=== PATIENT | female | born 2000 | race Caucasian/White ===

== ENCOUNTER 2022-11-19 11:53 | Outpatient (RCR) | payer SELFPAY ==
[2022-11-19] MEDS: Normal Saline Flush 10 ML SYR IVP (12:11)
[2022-11-19 12:19] LABS: Abs Immature Grans 0.36 10^3/uL (0.0-0.06); Absolute Eosinophil Count 0.03 10^3/uL (0.0-0.7); Absolute Neutrophil Count 15.29 10^3/uL (1.2-6.7); Basophils % 0.3; Eosinophils % 0.2; HCT 40.1 % (36.0-46.0); HGB 12.3 g/dL (11.2-15.7); Immature Grans % 2.1; Lymphocytes % 4.6; MCH 26.1 pg (27.0-33.0); MCHC 30.7 % (32.0-36.0); MCV 85 fL (80-95); MPV 9.8 fL (8.0-11.0); Monocytes % 5.3; Neutrophils % 87.5; Platelet Count 295 10^3/uL (130-400); RBC 4.72 10^6/uL (3.93-5.22); RDW 18.6 % (11.7-14.6); RDW-SD 57.1 fL; WBC 17.47 10^3/uL (4.4-10.8)
[2022-11-19 12:21] LABS: Absolute Basophil Count 0.05 10^3/uL (0.0-0.2); Absolute Monocyte Count 0.93 10^3/uL (0.1-0.8)
[2022-11-19 12:23] LABS: ESR 37 mm/hr (0-20)
[2022-11-19 12:35] LABS: ALT 28 U/L (14-59); AST 13 U/L (15-37); Albumin 3.2 g/dL (3.4-5.0); Alkaline Phosphatase 66 U/L (46-116); Anion Gap 4.2 mmol/L (3-11); BUN 20 mg/dL (7-18); Bilirubin, Total 0.2 mg/dL (0.2-1.0); CO2 29.8 mmol/L (21.0-32.0); CREATININE 0.9 mg/dL (0.55-1.02); Calcium 8.9 mg/dL (8.5-10.1); Chloride 104 mmol/L (98-107); Estimated GFR 92.12 (mL/min/1.73m2); Glucose 97 mg/dL (74-106); Potassium 3.9 mmol/L (3.5-5.1); Sodium 138 mmol/L (136-145); Total Protein 7.5 g/dL (6.4-8.2)
== END 2022-11-25 23:59 | disposition home or self-care (01) ==
LOC: INF 11:53
PROVIDERS: PCP Nurse Practitioner Family; Visit Provider Internal Medicine Hematology & Oncology
DX: C81.18 Nodular sclerosis Hodgkin lymphoma, lymph nodes of multiple sites (principal); Z45.2 Encounter for adjustment and management of vascular access device
CPT/HCPCS: 36591; 80053; 85652; 85025

== ENCOUNTER 2022-12-17 01:33 | Outpatient (RCR) | payer SELFPAY ==
[2022-12-03] MEDS: Normal Saline Flush 10 ML SYR IVP (08:10)
[2022-12-03 08:19] LABS: Abs Immature Grans 1.34 10^3/uL (0.0-0.06); HCT 39.6 % (36.0-46.0); HGB 12.5 g/dL (11.2-15.7); MCH 26.5 pg (27.0-33.0); MCHC 31.6 % (32.0-36.0); MCV 84 fL (80-95); MPV 9.8 fL (8.0-11.0); Platelet Count 200 10^3/uL (130-400); RBC 4.71 10^6/uL (3.93-5.22); RDW 19.4 % (11.7-14.6); RDW-SD 57.5 fL; WBC 13.81 10^3/uL (4.4-10.8)
[2022-12-03 08:30] LABS: ESR 19 mm/hr (0-20)
[2022-12-03 08:36] LABS: ALT 62 U/L (14-59); AST 24 U/L (15-37); Albumin 3.4 g/dL (3.4-5.0); Alkaline Phosphatase 91 U/L (46-116); Anion Gap 4.9 mmol/L (3-11); BUN 12 mg/dL (7-18); Bilirubin, Total 0.2 mg/dL (0.2-1.0); CO2 31.1 mmol/L (21.0-32.0); CREATININE 0.7 mg/dL (0.55-1.02); Calcium 8.9 mg/dL (8.5-10.1); Chloride 107 mmol/L (98-107); Estimated GFR 124.55 (mL/min/1.73m2); Glucose 86 mg/dL (74-106); Potassium 3.8 mmol/L (3.5-5.1); Sodium 143 mmol/L (136-145); Total Protein 6.9 g/dL (6.4-8.2)
[2022-12-03 08:44] LABS: Absolute Lymphocyte Count 4.97 10^3/uL (1.2-3.4); Absolute Neutrophil Count 7.04 10^3/uL (1.2-6.7); Atypical Lymphocytes % 3
[2022-12-03 08:45] LABS: Absolute Basophil Count 0.14 10^3/uL (0.0-0.2); Absolute Eosinophil Count 0.41 10^3/uL (0.0-0.7); Absolute Monocyte Count 1.24 10^3/uL (0.1-0.8); Diff Comment Manual Differential; RBC Morphology Normal
[2022-12-10 08:00] LABS: Abs Immature Grans 0.14 10^3/uL (0.0-0.06); HCT 39.6 % (36.0-46.0); HGB 12.5 g/dL (11.2-15.7); MCH 26.4 pg (27.0-33.0); MCHC 31.6 % (32.0-36.0); MCV 84 fL (80-95); Platelet Count 231 10^3/uL (130-400); RBC 4.73 10^6/uL (3.93-5.22); RDW-SD 54.6 fL; WBC 6.59 10^3/uL (4.4-10.8)
[2022-12-10] MEDS: Normal Saline Flush 10 ML SYR IVP (08:11)
[2022-12-10] MEDS: Heparin 500 UNITS/5 ML SYRINGE IV (08:11)
[2022-12-10 08:16] LABS: Absolute Lymphocyte Count 2.37 10^3/uL (1.2-3.4); Absolute Monocyte Count 0.53 10^3/uL (0.1-0.8); Absolute Neutrophil Count 3.36 10^3/uL (1.2-6.7); Atypical Lymphocytes % 3; Bands % 3
[2022-12-10 08:17] LABS: Absolute Basophil Count 0.13 10^3/uL (0.0-0.2); Diff Comment Manual Differential; RBC Morphology Normal
[2022-12-10 08:20] LABS: ALT 63 U/L (14-59); AST 21 U/L (15-37); Albumin 3.5 g/dL (3.4-5.0); Alkaline Phosphatase 123 U/L (46-116); Anion Gap 9.8 mmol/L (3-11); BUN 6 mg/dL (7-18); Bilirubin, Total 0.2 mg/dL (0.2-1.0); CO2 27.2 mmol/L (21.0-32.0); CREATININE 0.6 mg/dL (0.55-1.02); Calcium 8.9 mg/dL (8.5-10.1); Chloride 102 mmol/L (98-107); Estimated GFR 129.27 (mL/min/1.73m2); Glucose 116 mg/dL (74-106); Potassium 3.6 mmol/L (3.5-5.1); Sodium 139 mmol/L (136-145); Total Protein 6.8 g/dL (6.4-8.2)
[2022-12-17] MEDS: Normal Saline Flush 10 ML SYR IVP (12:59)
[2022-12-17 13:04] LABS: Abs Immature Grans 1.25 10^3/uL (0.0-0.06); HCT 39.7 % (36.0-46.0); HGB 12.7 g/dL (11.2-15.7); MCH 26.8 pg (27.0-33.0); MCV 84 fL (80-95); MPV 9.7 fL (8.0-11.0); Platelet Count 312 10^3/uL (130-400); RBC 4.74 10^6/uL (3.93-5.22); RDW 18.9 % (11.7-14.6); WBC 13.72 10^3/uL (4.4-10.8)
[2022-12-17 13:07] LABS: ESR 24 mm/hr (0-20)
[2022-12-17 13:15] LABS: ALT 116 U/L (14-59); AST 32 U/L (15-37); Albumin 3.7 g/dL (3.4-5.0); Alkaline Phosphatase 97 U/L (46-116); Anion Gap 8.9 mmol/L (3-11); BUN 14 mg/dL (7-18); Bilirubin, Total 0.1 mg/dL (0.2-1.0); CO2 28.1 mmol/L (21.0-32.0); CREATININE 0.6 mg/dL (0.55-1.02); Calcium 9.2 mg/dL (8.5-10.1); Chloride 104 mmol/L (98-107); Estimated GFR 129.27 (mL/min/1.73m2); Glucose 107 mg/dL (74-106); Potassium 3.7 mmol/L (3.5-5.1); Sodium 141 mmol/L (136-145); Total Protein 7.2 g/dL (6.4-8.2)
[2022-12-17 13:21] LABS: Absolute Lymphocyte Count 5.08 10^3/uL (1.2-3.4); Absolute Monocyte Count 0.55 10^3/uL (0.1-0.8); Absolute Neutrophil Count 7.96 10^3/uL (1.2-6.7); Atypical Lymphocytes % 2; Bands % 1; Diff Comment Manual Differential; Metamyelocytes % 1; RBC Morphology Normal
== END 2022-12-23 23:59 | disposition home or self-care (01) ==
LOC: INF 01:33
PROVIDERS: PCP Nurse Practitioner Family; Visit Provider Internal Medicine Hematology & Oncology
DX: Z45.2 Encounter for adjustment and management of vascular access device (principal); C81.18 Nodular sclerosis Hodgkin lymphoma, lymph nodes of multiple sites
CPT/HCPCS: 36591; 80053; 85652; 87040; 85025

== ENCOUNTER 2023-01-14 02:29 | Outpatient (RCR) | payer SELFPAY ==
[2022-12-31] MEDS: Normal Saline Flush 10 ML SYR IVP (11:30)
[2022-12-31 11:43] LABS: Abs Immature Grans 0.01 10^3/uL (0.0-0.06); Absolute Basophil Count 0.15 10^3/uL (0.0-0.2); Absolute Eosinophil Count 0.12 10^3/uL (0.0-0.7); Absolute Monocyte Count 0.91 10^3/uL (0.1-0.8); Absolute Neutrophil Count 2.94 10^3/uL (1.2-6.7); Basophils % 2.3; Eosinophils % 1.8; HCT 37.8 % (36.0-46.0); Immature Grans % 0.2; Lymphocytes % 36.8; MCH 26.7 pg (27.0-33.0); MCHC 31.7 % (32.0-36.0); MCV 84 fL (80-95); MPV 9.8 fL (8.0-11.0); Monocytes % 13.9; Platelet Count 341 10^3/uL (130-400); RDW 18.6 % (11.7-14.6); RDW-SD 55.8 fL; WBC 6.53 10^3/uL (4.4-10.8)
[2022-12-31 11:45] LABS: ESR 23 mm/hr (0-20)
[2022-12-31 12:10] LABS: ALT 66 U/L (14-59); AST 26 U/L (15-37); Albumin 3.7 g/dL (3.4-5.0); Alkaline Phosphatase 77 U/L (46-116); Anion Gap 6.2 mmol/L (3-11); BUN 9 mg/dL (7-18); Bilirubin, Total 0.2 mg/dL (0.2-1.0); CO2 29.8 mmol/L (21.0-32.0); CREATININE 0.5 mg/dL (0.55-1.02); Calcium 9.2 mg/dL (8.5-10.1); Chloride 106 mmol/L (98-107); Estimated GFR 135.07 (mL/min/1.73m2); Glucose 94 mg/dL (74-106); Sodium 142 mmol/L (136-145); Total Protein 7.2 g/dL (6.4-8.2)
[2023-01-14 10:45] LABS: Abs Immature Grans 0.01 10^3/uL (0.0-0.06); Absolute Basophil Count 0.06 10^3/uL (0.0-0.2); Absolute Eosinophil Count 0.08 10^3/uL (0.0-0.7); Absolute Lymphocyte Count 1.96 10^3/uL (1.2-3.4); Absolute Monocyte Count 0.65 10^3/uL (0.1-0.8); Absolute Neutrophil Count 2.26 10^3/uL (1.2-6.7); Basophils % 1.2; Eosinophils % 1.6; HCT 37.8 % (36.0-46.0); HGB 12.3 g/dL (11.2-15.7); Immature Grans % 0.2; MCH 27.1 pg (27.0-33.0); MCHC 32.5 % (32.0-36.0); MCV 83 fL (80-95); MPV 9.6 fL (8.0-11.0); Monocytes % 12.9; Neutrophils % 45.1; Platelet Count 340 10^3/uL (130-400); RBC 4.54 10^6/uL (3.93-5.22); RDW 18.7 % (11.7-14.6); RDW-SD 56.1 fL; WBC 5.02 10^3/uL (4.4-10.8)
[2023-01-14 10:51] LABS: ESR 25 mm/hr (0-20)
[2023-01-14] MEDS: Normal Saline Flush 10 ML SYR IVP (10:58)
[2023-01-14 11:11] LABS: ALT 50 U/L (14-59); AST 20 U/L (15-37); Albumin 3.7 g/dL (3.4-5.0); Alkaline Phosphatase 67 U/L (46-116); BUN 13 mg/dL (7-18); Bilirubin, Total 0.2 mg/dL (0.2-1.0); CREATININE 0.6 mg/dL (0.55-1.02); Calcium 9.2 mg/dL (8.5-10.1); Chloride 106 mmol/L (98-107); Estimated GFR 129.27 (mL/min/1.73m2); Glucose 92 mg/dL (74-106); Sodium 140 mmol/L (136-145); Total Protein 7.2 g/dL (6.4-8.2)
== END 2023-01-23 23:59 | disposition home or self-care (01) ==
LOC: INF 02:29
PROVIDERS: PCP Nurse Practitioner Family; Visit Provider Internal Medicine Hematology & Oncology
DX: Z45.2 Encounter for adjustment and management of vascular access device (principal); C81.18 Nodular sclerosis Hodgkin lymphoma, lymph nodes of multiple sites
CPT/HCPCS: 36591; 80053; 85652; 85025

== ENCOUNTER 2023-02-11 02:29 | Outpatient (RCR) | payer SELFPAY ==
[2023-01-28 08:42] LABS: Abs Immature Grans 0.01 10^3/uL (0.0-0.06); Absolute Basophil Count 0.06 10^3/uL (0.0-0.2); Absolute Eosinophil Count 0.07 10^3/uL (0.0-0.7); Absolute Monocyte Count 0.66 10^3/uL (0.1-0.8); Absolute Neutrophil Count 1.71 10^3/uL (1.2-6.7); Basophils % 1.4; Eosinophils % 1.6; HCT 36.9 % (36.0-46.0); HGB 12.2 g/dL (11.2-15.7); Immature Grans % 0.2; Lymphocytes % 43.1; MCH 27.9 pg (27.0-33.0); MCHC 33.1 % (32.0-36.0); MCV 84 fL (80-95); MPV 9.4 fL (8.0-11.0); Neutrophils % 38.7; Platelet Count 307 10^3/uL (130-400); RBC 4.37 10^6/uL (3.93-5.22); RDW 18.1 % (11.7-14.6); RDW-SD 56.1 fL; WBC 4.41 10^3/uL (4.4-10.8)
[2023-01-28 08:44] LABS: ESR 19 mm/hr (0-20)
[2023-01-28 08:55] LABS: ALT 54 U/L (14-59); AST 23 U/L (15-37); Albumin 3.7 g/dL (3.4-5.0); Alkaline Phosphatase 63 U/L (46-116); Anion Gap 6.6 mmol/L (3-11); BUN 7 mg/dL (7-18); Bilirubin, Total 0.2 mg/dL (0.2-1.0); CO2 30.4 mmol/L (21.0-32.0); CREATININE 0.5 mg/dL (0.55-1.02); Calcium 9.3 mg/dL (8.5-10.1); Chloride 106 mmol/L (98-107); Estimated GFR 135.07 (mL/min/1.73m2); Glucose 94 mg/dL (74-106); Sodium 143 mmol/L (136-145); Total Protein 7.1 g/dL (6.4-8.2)
[2023-01-28] MEDS: Normal Saline Flush 10 ML SYR IVP (09:53)
[2023-02-11] MEDS: Normal Saline Flush 10 ML SYR IVP (08:24)
[2023-02-11 08:37] LABS: Abs Immature Grans 0.01 10^3/uL (0.0-0.06); Absolute Basophil Count 0.04 10^3/uL (0.0-0.2); Absolute Eosinophil Count 0.05 10^3/uL (0.0-0.7); Absolute Lymphocyte Count 1.35 10^3/uL (1.2-3.4); Absolute Monocyte Count 0.62 10^3/uL (0.1-0.8); Basophils % 1.1; Eosinophils % 1.4; HCT 36.2 % (36.0-46.0); HGB 11.8 g/dL (11.2-15.7); Immature Grans % 0.3; Lymphocytes % 36.8; MCHC 32.6 % (32.0-36.0); MCV 86 fL (80-95); MPV 9.2 fL (8.0-11.0); Monocytes % 16.9; Neutrophils % 43.5; Platelet Count 322 10^3/uL (130-400); RBC 4.22 10^6/uL (3.93-5.22); RDW 17.4 % (11.7-14.6); RDW-SD 54.6 fL; WBC 3.67 10^3/uL (4.4-10.8)
[2023-02-11 08:47] LABS: ESR 17 mm/hr (0-20)
[2023-02-11 08:55] LABS: ALT 51 U/L (14-59); AST 18 U/L (15-37); Albumin 3.7 g/dL (3.4-5.0); Alkaline Phosphatase 60 U/L (46-116); Anion Gap 8.7 mmol/L (3-11); BUN 8 mg/dL (7-18); Bilirubin, Total 0.3 mg/dL (0.2-1.0); CO2 27.3 mmol/L (21.0-32.0); CREATININE 0.7 mg/dL (0.55-1.02); Calcium 9.6 mg/dL (8.5-10.1); Chloride 106 mmol/L (98-107); Estimated GFR 124.55 (mL/min/1.73m2); Glucose 97 mg/dL (74-106); Potassium 4.2 mmol/L (3.5-5.1); Sodium 142 mmol/L (136-145); Total Protein 7.1 g/dL (6.4-8.2)
== END 2023-02-22 23:59 | disposition home or self-care (01) ==
LOC: INF 02:29
PROVIDERS: PCP Nurse Practitioner Family; Visit Provider Internal Medicine Hematology & Oncology
DX: Z45.2 Encounter for adjustment and management of vascular access device (principal); C81.18 Nodular sclerosis Hodgkin lymphoma, lymph nodes of multiple sites
CPT/HCPCS: 36591; 80053; 85652; 85025

== ENCOUNTER 2023-03-25 03:15 | Outpatient (RCR) | payer SELFPAY ==
[2023-02-25] MEDS: Normal Saline Flush 10 ML SYR IVP (08:48)
[2023-02-25 09:21] LABS: Abs Immature Grans 0.01 10^3/uL (0.0-0.06); Absolute Basophil Count 0.04 10^3/uL (0.0-0.2); Absolute Eosinophil Count 0.06 10^3/uL (0.0-0.7); Absolute Lymphocyte Count 1.15 10^3/uL (1.2-3.4); Absolute Monocyte Count 0.74 10^3/uL (0.1-0.8); Absolute Neutrophil Count 1.59 10^3/uL (1.2-6.7); Basophils % 1.1; Eosinophils % 1.7; HCT 35.7 % (36.0-46.0); HGB 11.6 g/dL (11.2-15.7); Immature Grans % 0.3; MCHC 32.5 % (32.0-36.0); MCV 86 fL (80-95); MPV 9.3 fL (8.0-11.0); Monocytes % 20.6; Neutrophils % 44.3; Platelet Count 306 10^3/uL (130-400); RBC 4.14 10^6/uL (3.93-5.22); RDW 16.1 % (11.7-14.6); RDW-SD 50.7 fL; WBC 3.59 10^3/uL (4.4-10.8)
[2023-02-25 09:40] LABS: ALT 49 U/L (14-59); AST 20 U/L (15-37); Albumin 3.5 g/dL (3.4-5.0); Alkaline Phosphatase 65 U/L (46-116); Anion Gap 8.9 mmol/L (3-11); BUN 9 mg/dL (7-18); Bilirubin, Total 0.3 mg/dL (0.2-1.0); CO2 27.1 mmol/L (21.0-32.0); CREATININE 0.6 mg/dL (0.55-1.02); Chloride 108 mmol/L (98-107); Estimated GFR 129.27 (mL/min/1.73m2); Glucose 114 mg/dL (74-106); Potassium 3.9 mmol/L (3.5-5.1); Sodium 144 mmol/L (136-145); Total Protein 7.1 g/dL (6.4-8.2)
[2023-02-25 09:43] LABS: ESR 28 mm/hr (0-20)
[2023-03-11] MEDS: Normal Saline Flush 10 ML SYR IVP (09:17)
[2023-03-11 09:23] LABS: Abs Immature Grans 0.01 10^3/uL (0.0-0.06); Absolute Basophil Count 0.06 10^3/uL (0.0-0.2); Absolute Eosinophil Count 0.06 10^3/uL (0.0-0.7); Absolute Lymphocyte Count 1.52 10^3/uL (1.2-3.4); Absolute Neutrophil Count 1.66 10^3/uL (1.2-6.7); Basophils % 1.5; Eosinophils % 1.5; HCT 36.2 % (36.0-46.0); HGB 11.7 g/dL (11.2-15.7); Immature Grans % 0.2; Lymphocytes % 37.9; MCH 28.3 pg (27.0-33.0); MCHC 32.3 % (32.0-36.0); MCV 87 fL (80-95); MPV 9.5 fL (8.0-11.0); Monocytes % 17.5; Neutrophils % 41.4; Platelet Count 309 10^3/uL (130-400); RBC 4.14 10^6/uL (3.93-5.22); RDW 15.2 % (11.7-14.6); RDW-SD 48.5 fL; WBC 4.01 10^3/uL (4.4-10.8)
[2023-03-11 09:25] LABS: ESR 25 mm/hr (0-20)
[2023-03-11 09:45] LABS: ALT 52 U/L (14-59); AST 28 U/L (15-37); Albumin 3.7 g/dL (3.4-5.0); Alkaline Phosphatase 62 U/L (46-116); BUN 14 mg/dL (7-18); Bilirubin, Total 0.3 mg/dL (0.2-1.0); CREATININE 0.5 mg/dL (0.55-1.02); Calcium 9.4 mg/dL (8.5-10.1); Chloride 104 mmol/L (98-107); Estimated GFR 135.07 (mL/min/1.73m2); Glucose 96 mg/dL (74-106); Sodium 138 mmol/L (136-145); Total Protein 7.3 g/dL (6.4-8.2)
[2023-03-25] MEDS: Normal Saline Flush 10 ML SYR IVP (08:02)
[2023-03-25 08:09] LABS: Abs Immature Grans 0.01 10^3/uL (0.0-0.06); Absolute Basophil Count 0.05 10^3/uL (0.0-0.2); Absolute Eosinophil Count 0.07 10^3/uL (0.0-0.7); Absolute Lymphocyte Count 1.26 10^3/uL (1.2-3.4); Absolute Monocyte Count 0.61 10^3/uL (0.1-0.8); Absolute Neutrophil Count 2.34 10^3/uL (1.2-6.7); Basophils % 1.2; Eosinophils % 1.6; HCT 35.6 % (36.0-46.0); HGB 11.6 g/dL (11.2-15.7); Immature Grans % 0.2; MCH 28.8 pg (27.0-33.0); MCHC 32.6 % (32.0-36.0); MCV 88 fL (80-95); MPV 9.5 fL (8.0-11.0); Monocytes % 14.1; Neutrophils % 53.9; Platelet Count 318 10^3/uL (130-400); RBC 4.03 10^6/uL (3.93-5.22); RDW 14.6 % (11.7-14.6); RDW-SD 47.3 fL; WBC 4.34 10^3/uL (4.4-10.8)
[2023-03-25 08:11] LABS: ESR 23 mm/hr (0-20)
[2023-03-25 08:25] LABS: ALT 48 U/L (14-59); AST 22 U/L (15-37); Albumin 3.6 g/dL (3.4-5.0); Alkaline Phosphatase 67 U/L (46-116); Anion Gap 8.6 mmol/L (3-11); BUN 10 mg/dL (7-18); Bilirubin, Total 0.4 mg/dL (0.2-1.0); CO2 28.4 mmol/L (21.0-32.0); CREATININE 0.6 mg/dL (0.55-1.02); Calcium 9.2 mg/dL (8.5-10.1); Chloride 105 mmol/L (98-107); Estimated GFR 129.27 (mL/min/1.73m2); Glucose 105 mg/dL (74-106); Sodium 142 mmol/L (136-145); Total Protein 7.1 g/dL (6.4-8.2)
== END 2023-03-25 23:59 | disposition home or self-care (01) ==
LOC: INF 03:15
PROVIDERS: PCP Nurse Practitioner Family; Visit Provider Internal Medicine Hematology & Oncology
DX: Z45.2 Encounter for adjustment and management of vascular access device (principal); C81.18 Nodular sclerosis Hodgkin lymphoma, lymph nodes of multiple sites
CPT/HCPCS: 36591; 80053; 85652; 85025

== ENCOUNTER 2023-04-22 02:22 | Outpatient (RCR) | payer SELFPAY ==
[2023-04-08] MEDS: Normal Saline Flush 10 ML SYR IVP (12:10)
[2023-04-08 12:46] LABS: Abs Immature Grans 0.01 10^3/uL (0.0-0.06); Absolute Basophil Count 0.07 10^3/uL (0.0-0.2); Absolute Eosinophil Count 0.09 10^3/uL (0.0-0.7); Absolute Lymphocyte Count 1.48 10^3/uL (1.2-3.4); Absolute Monocyte Count 0.86 10^3/uL (0.1-0.8); Absolute Neutrophil Count 2.42 10^3/uL (1.2-6.7); Basophils % 1.4; Eosinophils % 1.8; HGB 12.3 g/dL (11.2-15.7); Immature Grans % 0.2; MCH 28.5 pg (27.0-33.0); MCHC 32.4 % (32.0-36.0); MCV 88 fL (80-95); MPV 9.5 fL (8.0-11.0); Monocytes % 17.4; Neutrophils % 49.2; Platelet Count 370 10^3/uL (130-400); RBC 4.32 10^6/uL (3.93-5.22); RDW 14.6 % (11.7-14.6); RDW-SD 46.6 fL; WBC 4.93 10^3/uL (4.4-10.8)
[2023-04-08 12:49] LABS: ESR 28 mm/hr (0-20)
[2023-04-08 13:05] LABS: ALT 40 U/L (14-59); AST 19 U/L (15-37); Albumin 3.7 g/dL (3.4-5.0); Alkaline Phosphatase 72 U/L (46-116); Anion Gap 0.7 mmol/L (3-11); BUN 11 mg/dL (7-18); Bilirubin, Total 0.2 mg/dL (0.2-1.0); CO2 29.3 mmol/L (21.0-32.0); CREATININE 0.6 mg/dL (0.55-1.02); Calcium 9.1 mg/dL (8.5-10.1); Chloride 105 mmol/L (98-107); Estimated GFR 129.27 (mL/min/1.73m2); Glucose 87 mg/dL (74-106); Sodium 135 mmol/L (136-145); Total Protein 7.2 g/dL (6.4-8.2)
[2023-04-22] MEDS: Normal Saline Flush 10 ML SYR IVP (10:03)
[2023-04-22 10:29] LABS: Abs Immature Grans 0.01 10^3/uL (0.0-0.06); Absolute Basophil Count 0.05 10^3/uL (0.0-0.2); Absolute Eosinophil Count 0.07 10^3/uL (0.0-0.7); Absolute Lymphocyte Count 1.32 10^3/uL (1.2-3.4); Absolute Monocyte Count 0.69 10^3/uL (0.1-0.8); Absolute Neutrophil Count 2.78 10^3/uL (1.2-6.7); Eosinophils % 1.4; HCT 37.4 % (36.0-46.0); HGB 12.1 g/dL (11.2-15.7); Immature Grans % 0.2; Lymphocytes % 26.8; MCH 28.7 pg (27.0-33.0); MCHC 32.4 % (32.0-36.0); MCV 89 fL (80-95); MPV 10.1 fL (8.0-11.0); Neutrophils % 56.6; Platelet Count 293 10^3/uL (130-400); RBC 4.22 10^6/uL (3.93-5.22); RDW 14.9 % (11.7-14.6); RDW-SD 48.4 fL; WBC 4.92 10^3/uL (4.4-10.8)
[2023-04-22 10:31] LABS: ESR 24 mm/hr (0-20)
[2023-04-22 11:04] LABS: ALT 30 U/L (14-59); AST 16 U/L (15-37); Albumin 3.5 g/dL (3.4-5.0); Alkaline Phosphatase 68 U/L (46-116); Anion Gap 8.7 mmol/L (3-11); BUN 14 mg/dL (7-18); Bilirubin, Total 0.2 mg/dL (0.2-1.0); CO2 27.3 mmol/L (21.0-32.0); CREATININE 0.5 mg/dL (0.55-1.02); Chloride 105 mmol/L (98-107); Estimated GFR 135.07 (mL/min/1.73m2); Glucose 94 mg/dL (74-106); Potassium 4.1 mmol/L (3.5-5.1); Sodium 141 mmol/L (136-145)
== END 2023-04-24 23:59 | disposition home or self-care (01) ==
LOC: INF 02:22
PROVIDERS: PCP Nurse Practitioner Family; Visit Provider Internal Medicine Hematology & Oncology
DX: Z45.2 Encounter for adjustment and management of vascular access device (principal); C81.18 Nodular sclerosis Hodgkin lymphoma, lymph nodes of multiple sites
CPT/HCPCS: 36591; 80053; 85652; 85025

== ENCOUNTER 2023-09-02 02:30 | Outpatient (CLI) | payer SELFPAY ==
[2023-09-02 14:55] LABS: Abs Immature Grans 0.01 10^3/uL (0.0-0.06); Absolute Basophil Count 0.05 10^3/uL (0.0-0.2); Absolute Eosinophil Count 0.23 10^3/uL (0.0-0.7); Absolute Lymphocyte Count 2.26 10^3/uL (1.2-3.4); Absolute Monocyte Count 0.48 10^3/uL (0.1-0.8); Absolute Neutrophil Count 4.42 10^3/uL (1.2-6.7); Basophils % 0.7; Eosinophils % 3.1; HGB 12.7 g/dL (11.2-15.7); Immature Grans % 0.1; Lymphocytes % 30.3; MCH 28.2 pg (27.0-33.0); MCHC 32.6 % (32.0-36.0); MCV 87 fL (80-95); MPV 9.5 fL (8.0-11.0); Monocytes % 6.4; Neutrophils % 59.4; Platelet Count 286 10^3/uL (130-400); RBC 4.51 10^6/uL (3.93-5.22); RDW 13.5 % (11.7-14.6); RDW-SD 42.3 fL; WBC 7.45 10^3/uL (4.4-10.8)
[2023-09-02 14:58] LABS: ESR 9 mm/hr (0-20)
[2023-09-02 15:15] LABS: ALT 30 U/L (14-59); AST 15 U/L (15-37); Albumin 3.9 g/dL (3.4-5.0); Alkaline Phosphatase 120 U/L (46-116); Anion Gap 7.1 mmol/L (3-11); BUN 12 mg/dL (7-18); Bilirubin, Total 0.2 mg/dL (0.2-1.0); CO2 26.9 mmol/L (21.0-32.0); CREATININE 0.6 mg/dL (0.55-1.02); Calcium 9.4 mg/dL (8.5-10.1); Chloride 105 mmol/L (98-107); Estimated GFR 128.46 (mL/min/1.73m2); Glucose 91 mg/dL (74-106); Potassium 4.1 mmol/L (3.5-5.1); Sodium 139 mmol/L (136-145); Total Protein 7.3 g/dL (6.4-8.2)
== END 2023-09-02 02:31 | disposition home or self-care (01) ==
LOC: LBO 02:31
PROVIDERS: PCP Nurse Practitioner Family; Visit Provider Internal Medicine Hematology & Oncology
DX: C81.18 Nodular sclerosis Hodgkin lymphoma, lymph nodes of multiple sites (principal)
CPT/HCPCS: 36415; 80053; 85652; 85025

== ENCOUNTER 2023-12-09 10:46 | Outpatient (CLI) | payer SELFPAY ==
[2023-12-09 10:13] LABS: ESR 3 mm/hr (0-20)
[2023-12-09 10:14] LABS: Abs Immature Grans 0.02 10^3/uL (0.0-0.06); Absolute Basophil Count 0.04 10^3/uL (0.0-0.2); Absolute Monocyte Count 0.32 10^3/uL (0.1-0.8); Absolute Neutrophil Count 4.62 10^3/uL (1.2-6.7); Basophils % 0.6; Eosinophils % 1.4; HCT 39.8 % (36.0-46.0); HGB 12.9 g/dL (11.2-15.7); Immature Grans % 0.3; Lymphocytes % 28.2; MCH 28.3 pg (27.0-33.0); MCHC 32.4 % (32.0-36.0); MCV 87 fL (80-95); MPV 9.5 fL (8.0-11.0); Monocytes % 4.5; Platelet Count 272 10^3/uL (130-400); RBC 4.56 10^6/uL (3.93-5.22); RDW 13.2 % (11.7-14.6); RDW-SD 42.3 fL
[2023-12-09 10:33] LABS: ALT 36 U/L (14-59); AST 16 U/L (15-37); Albumin 3.8 g/dL (3.4-5.0); Alkaline Phosphatase 114 U/L (46-116); Anion Gap 10.1 mmol/L (3-11); BUN 10 mg/dL (7-18); Bilirubin, Total 0.5 mg/dL (0.2-1.0); CO2 27.9 mmol/L (21.0-32.0); CREATININE 0.7 mg/dL (0.55-1.02); Calcium 9.4 mg/dL (8.5-10.1); Chloride 106 mmol/L (98-107); Estimated GFR 123.78 (mL/min/1.73m2); Glucose 99 mg/dL (74-106); Potassium 4.2 mmol/L (3.5-5.1); Sodium 144 mmol/L (136-145); Total Protein 7.4 g/dL (6.4-8.2)
== END 2023-12-09 10:47 | disposition home or self-care (01) ==
LOC: LBO 10:47
PROVIDERS: PCP Nurse Practitioner Family; Visit Provider Nurse Practitioner Adult Health
DX: C81.18 Nodular sclerosis Hodgkin lymphoma, lymph nodes of multiple sites (principal)
CPT/HCPCS: 36415; 80053; 85652; 85025

== ENCOUNTER 2024-03-09 05:07 | Outpatient (CLI) | payer SELFPAY ==
[2024-03-09 10:25] LABS: Abs Immature Grans 0.03 10^3/uL (0.0-0.06); Absolute Basophil Count 0.06 10^3/uL (0.0-0.2); Absolute Eosinophil Count 0.07 10^3/uL (0.0-0.7); Absolute Lymphocyte Count 2.03 10^3/uL (1.2-3.4); Absolute Monocyte Count 0.52 10^3/uL (0.1-0.8); Absolute Neutrophil Count 5.84 10^3/uL (1.2-6.7); Basophils % 0.7 %; Eosinophils % 0.8 %; HCT 38.1 % (36.0-46.0); HGB 12.3 g/dL (11.2-15.7); Immature Grans % 0.4 %; Lymphocytes % 23.7 %; MCH 28.9 pg (27.0-33.0); MCHC 32.3 % (32.0-36.0); MCV 89 fL (80-95); MPV 9.1 fL (8.0-11.0); Monocytes % 6.1 %; Neutrophils % 68.3 %; Platelet Count 255 10^3/uL (130-400); RBC 4.26 10^6/uL (3.93-5.22); RDW 13.3 % (11.7-14.6); RDW-SD 43.9 fL; WBC 8.55 10^3/uL (4.4-10.8)
[2024-03-09 10:27] LABS: ESR 7 mm/hr (0-20)
[2024-03-09 10:42] LABS: ALT 19 U/L (14-59); AST 9 U/L (15-37); Albumin 3.4 g/dL (3.4-5.0); Alkaline Phosphatase 64 U/L (46-116); Anion Gap 8.4 mmol/L (3-11); BUN 7 mg/dL (7-18); Bilirubin, Total 0.3 mg/dL (0.2-1.0); CO2 24.6 mmol/L (21.0-32.0); CREATININE 0.5 mg/dL (0.55-1.02); Calcium 9.1 mg/dL (8.5-10.1); Chloride 105 mmol/L (98-107); Estimated GFR 134.23 (mL/min/1.73m2); Glucose 86 mg/dL (74-106); Potassium 4.2 mmol/L (3.5-5.1); Sodium 138 mmol/L (136-145); Total Protein 6.9 g/dL (6.4-8.2)
== END 2024-03-09 05:08 | disposition home or self-care (01) ==
PROVIDERS: PCP Nurse Practitioner Family; Visit Provider Nurse Practitioner Adult Health
DX: C81.18 Nodular sclerosis Hodgkin lymphoma, lymph nodes of multiple sites (principal)
CPT/HCPCS: 36415; 80053; 85652; 85025

== ENCOUNTER 2024-06-08 03:26 | Outpatient (CLI) | payer MEDICAID, SELFPAY ==
[2024-06-08 08:43] LABS: ESR 7 mm/hr (0-20)
[2024-06-08 08:44] LABS: Abs Immature Grans 0.08 10^3/uL (0.0-0.06); Absolute Basophil Count 0.04 10^3/uL (0.0-0.2); Absolute Eosinophil Count 0.08 10^3/uL (0.0-0.7); Absolute Lymphocyte Count 1.48 10^3/uL (1.2-3.4); Absolute Monocyte Count 0.45 10^3/uL (0.1-0.8); Absolute Neutrophil Count 6.36 10^3/uL (1.2-6.7); Basophils % 0.5 %; Eosinophils % 0.9 %; HCT 35.4 % (36.0-46.0); HGB 11.2 g/dL (11.2-15.7); Immature Grans % 0.9 %; Lymphocytes % 17.4 %; MCH 29.3 pg (27.0-33.0); MCHC 31.6 % (32.0-36.0); MCV 93 fL (80-95); MPV 9.5 fL (8.0-11.0); Monocytes % 5.3 %; Platelet Count 212 10^3/uL (130-400); RBC 3.82 10^6/uL (3.93-5.22); RDW 14.1 % (11.7-14.6); RDW-SD 47.8 fL; WBC 8.49 10^3/uL (4.4-10.8)
[2024-06-08 09:04] LABS: ALT 26 U/L (14-59); AST 16 U/L (15-37); Albumin 2.8 g/dL (3.4-5.0); Alkaline Phosphatase 65 U/L (46-116); Anion Gap 5.9 mmol/L (3-11); BUN 5 mg/dL (7-18); Bilirubin, Total 0.33 mg/dL (0.2-1.0); CO2 28.1 mmol/L (21.0-32.0); CREATININE 0.5 mg/dL (0.55-1.02); Calcium 8.6 mg/dL (8.5-10.1); Chloride 105 mmol/L (98-107); Glucose 101 mg/dL (74-106); Potassium 3.9 mmol/L (3.5-5.1); Sodium 139 mmol/L (136-145); Total Protein 6.5 g/dL (6.4-8.2)
== END 2024-06-08 03:27 | disposition home or self-care (01) ==
PROVIDERS: PCP Nurse Practitioner Family; Visit Provider Nurse Practitioner Adult Health
DX: C81.18 Nodular sclerosis Hodgkin lymphoma, lymph nodes of multiple sites (principal)
CPT/HCPCS: 36415; 80053; 85652; 85025

== ENCOUNTER 2025-07-12 01:53 | Outpatient (CLI) | payer MEDICAID, SELFPAY ==
[2025-07-12 09:38] LABS: Abs Immature Grans 0.02 10^3/uL (0.0-0.06); ESR 5 mm/hr (0-20); HCT 39.7 % (36.0-46.0); HGB 12.6 g/dL (11.2-15.7); Immature Grans % 0.3 %; MCH 28.6 pg (27.0-33.0); MCHC 31.7 % (32.0-36.0); MCV 90 fL (80-95); MPV 9.5 fL (8.0-11.0); Platelet Count 268 10^3/uL (130-400); RBC 4.40 10^6/uL (3.93-5.22); RDW 12.7 % (11.7-14.6); RDW-SD 42.1 fL; WBC 6.83 10^3/uL (4.4-10.8)
[2025-07-12 10:02] LABS: ALT 21 U/L (14-59); AST 13 U/L (15-37); Albumin 4.0 g/dL (3.4-5.0); Alkaline Phosphatase 102 U/L (46-116); Anion Gap 9.0 mmol/L (3-11); BUN 17 mg/dL (7-18); Bilirubin, Total 0.5 mg/dL (0.2-1.0); CO2 27.0 mmol/L (21.0-32.0); Calcium 8.9 mg/dL (8.5-10.1); Chloride 105 mmol/L (98-107); Estimated GFR 126.87 (mL/min/1.73m2); Glucose 83 mg/dL (74-106); Potassium 4.1 mmol/L (3.5-5.1); Sodium 141 mmol/L (136-145); Total Protein 7.4 g/dL (6.4-8.2)
[2025-07-13 09:55] LABS: Lyme Ab w Rflx to Lyme Confirm Negative (Negative)
== END 2025-07-12 01:54 | disposition home or self-care (01) ==
LOC: LBO 01:53
PROVIDERS: PCP Nurse Practitioner Family; Visit Provider Nurse Practitioner Adult Health
DX: S30.861A Insect bite (nonvenomous) of abdominal wall, initial encounter (principal); W57.XXXA Bitten or stung by nonvenomous insect and other nonvenomous arthropods, initial encounter; C81.18 Nodular sclerosis Hodgkin lymphoma, lymph nodes of multiple sites
CPT/HCPCS: 36415; 80053; 85652; 85025; 86618